=== PATIENT | male | born 1935 | race Caucasian/White ===

== ENCOUNTER 2017-09-18 23:00 | Observation (INO) ==
[2017-09-18 23:48] LABS: Bilirubin,Urine Negative (Negative); Blood,Urine Negative (Negative); Clarity,Urine Cloudy (Clear); Color,Urine Yellow (Yellow); Glucose,Urine (UA) Normal (Normal); Ketones,Urine Negative (Negative); Leukocyte Esterase,Urine Small (Negative); Nitrite,Urine Negative (Negative); Protein,Urine Negative (Neg-Trace); Specific Gravity,Urine 1.012 (1.010-1.025); Urobilinogen,Urine Normal (Normal)
[2017-09-18 23:51] LABS: Bacteria,Urine None Seen per hpf (None-Few); Hyaline Casts,Urine None Seen per lpf (None-Few); RBC,Urine 0-3 per hpf (0-3); Squamous Epithelial Cell,Urine Many per lpf (None-Few)
[2017-09-19 00:04] LABS: Alanine Aminotransferase 24 Units/L (7-52); Albumin 3.9 g/dL (3.5-5.7); Albumin/Globulin Ratio 1.3 (1.1-2.2); Alkaline Phosphatase 79 Units/L (34-104); Aspartate Amino Transferase 24 Units/L (13-39); BUN/Creatinine Ratio 10 (6-26); Bilirubin,Total 0.6 mg/dL (0.3-1.0); Blood Urea Nitrogen 18 mg/dL (8-23); Calcium 9.6 mg/dL (8.6-10.3); Carbon Dioxide 27 mEq/L (23-29); Chloride 105 mEq/L (98-107); Globulin 2.9 g/dL (2.4-3.5); Glucose 95 mg/dL (70-105); Osmolality,Calculated 284 (280-300); Potassium 4.3 mEq/L (3.5-5.1); Sodium 136 mEq/L (136-145); Total Protein 6.8 g/dL (6.4-8.9); Troponin I < 0.03 ng/mL (< 0.04); eGFR For African Americans 46 (> 60); eGFR For Non-African Americans 38 (> 60)
[2017-09-19 00:06] LABS: Basophils # 0.1 K/mcL (0.0-0.2); Basophils % 0.9 %; Eosinophils # 0.4 K/mcL (0.0-0.6); Eosinophils % 4.9 %; Immature Granulocytes % 0.5 % (0-4); Lymphocytes # 2.9 K/mcL (0.6-4.6); Lymphocytes % 36.9 %; Mean Corpuscular HGB Conc 34.1 g/dL (31.6-35.5); Mean Corpuscular Hemoglobin 32.3 pg (28.0-33.3); Mean Corpuscular Volume 94.8 fL (83.0-100.0); Mean Platelet Volume 10.9 fL (9.4-12.4); Monocytes # 0.7 K/mcL (0.0-1.3); Monocytes % 9.4 %; Neutrophils # 3.7 K/mcL (1.6-8.9); Platelet Count 163 K/mcL (140-400); Red Blood Count 4.64 M/mcL (4.19-5.50); Red Cell Distribution Width 13.6 % (11.5-14.5); Segmented Neutrophils % 47.4 %
--- NOTE | 2017-09-19 01:16 | Emergency Department Note ---
Disposition Clinical Impression: Dizziness Disposition: Admitted As Inpatient Condition: Good Time of Disposition: 06:05 General Adult HPI - General Chief complaint: ED Dizziness Stated complaint: states high bp,dizziness Time Seen by Provider: 09/18/17 23:10 Source: patient Mode of arrival: ambulatory Limitations: no limitations Nursing Notes Reviewed: Yes Vital Signs Reviewed: Yes - History of Present Illness HPI Narrative: Patient is an 81-year-old male with past medical history of HLD, HTN, renal disease, thyroid and CA presenting for evaluation of elevated BP and falls. Patient states that he has had 2 falls with the last fall being one week ago most recent fall being today in which she was able to stop himself from Zhu following and balance himself against the washer and dryer. He states that when these episodes are caught happening he thinks they are due to him being lightheaded. He denies any dizziness, vertiginous symptoms, near-syncopal, CP, DORY or other associated symptoms prior to falls. States he feels fine when he is sitting or laying down. Pain Scale: 0 - Related Data Home Medications Medication Instructions Recorded Confirmed Aspirin [Adult Aspirin] 81 mg PO DAILY 09/19/17 09/19/17 C,E,Zinc,Copper 11/Lwhyq7h/Lut 1 each PO DAILY 09/19/17 09/19/17 [Ocuvite Adult 50 Plus Softgel] Cholecalciferol (Vitamin D3) 5,000 unit PO DAILY 09/19/17 09/19/17 [Vitamin D3] Cyanocobalamin (B-12) [Vitamin B12] 1,000 mcg PO DAILY 09/19/17 09/19/17 Docusate [Colace] 100 mg PO DAILY 09/19/17 09/19/17 Levothyroxine [Synthroid] [place] [address]/19/17 09/19/17 Simvastatin [Zocor] 10 mg PO DAILY 09/19/17 09/19/17 Tamsulosin [Flomax] 1 tab PO BID 09/19/17 09/19/17 Allergies Allergy/AdvReac Type Severity Reaction Status Date / Time sulfamethoxazole Allergy Confusion Verified 09/18/17 23:06 [From Bactrim] trimethoprim [From Bactrim] Allergy Confusion Verified 09/18/17 23:06 All systems ED: reviewed and negative except as stated. Review of Systems: As Per HPI Constitutional: Denies: fever, chills Cardiovascular: Denies: chest pain, palpitations Respiratory: Denies: cough, dyspnea, wheezes, hemoptysis Gastrointestinal: Denies: abdominal pain, nausea, vomiting Genitourinary: Denies: urgency, dysuria Musculoskeletal: Denies: back pain, neck pain Integumentary: Denies: rash, abrasion Neurological: Denies: headache Past Medical History - Past Medical History Attestation: Yes The following information was validated with the patient. Medical history: Reports: hyperlipidemia, hypertension, myocardial infarction, renal disease, thyroid disease Psychiatric history: Reports: no psych history - Social History Smoking Status: Former smoker Smokeless Tobacco Status: No Alcohol use: Reports: rarely Drug use: Reports: none Physical Exam CONSTITUTIONAL: Alert and oriented X3, well-nourished, well appearing, in no apparent distress HEAD: Normocephalic; atraumatic. EYES: PERRL, no scleral icterus. NOSE: The nose is normal in appearance without rhinorrhea RESP: Normal chest excursion with respiration; breath sounds clear and equal bilaterally; no wheezes, rhonchi, or rales CARD: Regular rhythm, without murmurs, rub or gallop ABD: Non-distended; non-tender, soft,without rigidity, rebound or guarding SKIN: Normal for age and race; warm and dry; no apparent lesions NEUROLOGICAL: Patient is alert and oriented times three. Cranial nerves III- XII are intact. Sensory and motor functions are intact. Strength is 5/5 for flexion and extension in all 4 extremities. Patellar DTRS are equal and intact. Finger to nose testing is equal and normal bilaterally. 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 - General General appearance: alert, in no apparent distress Course Course Narrative: Patient's head CT was unremarkable, his lab work was unremarkable as well except for an elevation of creatinine however this is chronic for this patient. Discussed plan to admit him for further evaluation for posterior stroke with an MRI. Discussed that given patient has had almost 2 falls in the past week is not safe to go home at this time and would benefit from hospitalization to rule out stroke is no underlying etiology. Patient was admitted to the hospitalist. Vital Signs Temperature 97.5 F L 06/30/18 23:03 Pulse Rate 62 09/18/17 23:03 Respiratory Rate 16 09/18/17 23:03 Blood Pressure 166/87 09/18/17 23:03 O2 Sat by Pulse Oximetry 98 09/18/17 23:03 Temperature 98.1 F 09/19/17 03:18 Pulse Rate 58 09/19/17 04:03 Respiratory Rate 18 09/19/17 04:03 Blood Pressure 167/89 09/19/17 04:03 O2 Sat by Pulse Oximetry 98 09/19/17 03:18 Oxygen Delivery Oxygen Delivery Room Air Medical Decision Making - Medical Records Medical records reviewed: Yes I reviewed the patient's medical records. - Lab Data Lab results reviewed: Yes I reviewed the patient's lab results. Result diagrams: 09/18/17 23:30 09/18/17 23:30 Lab Results 09/18/17 09/18/17 09/18/17 Range/Units 23:30 23:30 23:40 WBC 7.8 (4.3-11.1) K/mcL RBC 4.64 (4.19-5.50) M/mcL Hgb 15.0 (12.9-16.9) g/dL Hct 44.0 (37.5-50.1) % MCV 94.8 (83.0-100.0) fL MCH 32.3 (28.0-33.3) pg MCHC 34.1 (31.6-35.5) g/dL RDW 13.6 (11.5-14.5) % Plt Count 163 (140-400) K/mcL MPV 10.9 (9.4-12.4) fL Immature Gran % 0.5 (0-4) % Seg Neutrophils % 47.4 % Lymphocytes % 36.9 % Monocytes % 9.4 % Eosinophils % 4.9 % Basophils % 0.9 % Neutrophils # 3.7 (1.6-8.9) K/mcL Lymphocytes # 2.9 (0.6-4.6) K/mcL Monocytes # 0.7 (0.0-1.3) K/mcL Eosinophils # 0.4 (0.0-0.6) K/mcL Basophils # 0.1 (0.0-0.2) K/mcL Sodium 136 (136-145) mEq/L Potassium 4.3 (3.5-5.1) mEq/L Chloride 105 (98-107) mEq/L Carbon Dioxide 27 (23-29) mEq/L BUN 18 (8-23) mg/dL Creatinine 1.73 H (0.70-1.30) mg/dL Est GFR ( Amer) 46 L (> 60) Est GFR (Non-Af Amer) 38 L (> 60) BUN/Creatinine Ratio 10 (6-26) Glucose 95 (70-105) mg/dL Calculated Osmolality 284 (280-300) Calcium 9.6 (8.6-10.3) mg/dL Total Bilirubin 0.6 (0.3-1.0) mg/dL AST 24 (13-39) Units/L ALT 24 (7-52) Units/L Alkaline Phosphatase 79 (34-104) Units/L Troponin I < 0.03 (< 0.04) ng/mL Serum Total Protein 6.8 (6.4-8.9) g/dL Albumin 3.9 (3.5-5.7) g/dL Globulin 2.9 (2.4-3.5) g/dL Albumin/Globulin Ratio 1.3 (1.1-2.2) Urine Color Yellow (Yellow) Urine Clarity Cloudy A (Clear) Urine pH 6.0 (5.0-8.0) pH Units Ur Specific Chappell 1.012 (1.010-1.025) Urine Protein Negative (Neg-Trace) mg/dL Urine Glucose (UA) Normal (Normal) mg/dL Urine Ketones Negative (Negative) mg/dL Urine Blood Negative (Negative) Urine Nitrite Negative (Negative) Urine Bilirubin Negative (Negative) Urine Urobilinogen Normal (Normal) mg/dL Ur Leukocyte Esterase Small H (Negative) Urine Microscopic RBC 0-3 (0-3) per hpf Urine Microscopic WBC 5-15 H (0-3) per hpf Ur Squamous Epith Cells Many H (None-Few) per lpf Urine Bacteria None Seen (None-Few) per hpf Hyaline Casts None Seen (None-Few) per lpf Ur Culture Indicated? NO. A (NO) - Radiology Data Radiology results reviewed: Yes I reviewed the patient's radiology results. Head CT 09/18/17 23:20 IMPRESSION: No acute intracranial abnormality. D/ / Francis Rios / Francis Rios Interpreting Provider: Francis Rios Chest X-Ray 09/19/17 00:23 IMPRESSION: 1. Cardiomegaly. 2. Calcific atherosclerosis aorta. 3. Probable acute on chronic interstitial disease and bibasilar pneumonia. I cannot exclude congestive heart failure. D/ / Mainor Solo / Mainor Solo Interpreting Provider: Mainor Solo - EKG Data EKG #1 EKG attestation: Yes I reviewed and interpreted this EKG. EKG results narrative: EKG done at 23:27 shows sinus rhythm at a rate of 62 bpm. Normal axis. No ischemic changes. Attestation Statement - Attestation Attestation: I examined this patient and my medical decision-making was reviewed with the Resident Physician. I agree with the documented findings, disposition and treatment plan as described except to the extent set forth below. I spoke with neurology, no rec at this time. They will see the patient in the morning. Spoke with Dr. Unger. Patient is stable with NIH 0 at time of admission.
--- NOTE | 2017-09-19 02:40 | Internal Med History&Physical ---
Date of Encounter: 09/19/17 Time of Encounter: 02:40 Internal Medicine - H&P: HPI Chief complaint: Falls Admitted From: Home History of present illness: Mr. Winslow is an 81 year-old male with PMH of [place], HTN, HLD, renal disease, and hypothyroidism who presented to the ED to be evaluated for falls. When he woke up yesterday morning he reports feeling nauseous and "not right." He then went to let his dog outside and reports almost falling, but was able catch himself on the washer and dryer nearby. He says that when he's falling, he knows he's falling, but "can't do anything about it." Last fell 1 week ago. Denies dizziness, pre-syncopal symptoms, headache, chest pain or pressure, heart palpitations, dyspnea, wheezing, coughing, abdominal pain, vomiting. Additionally, he reports vision changes in his left eye x 1 year--he is aware he has a left eye cataract. 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 Describes vision changes in that when he looks at a white wall in his home, it sometimes appears green, purple, or gold and faces on TV look like somebody's painted them or appear smeared--these episodes occur intermittently, sometimes several weeks apart. He denies past history of TIA or stroke. In the ED he was afebrile and his vital signs were stable. He was, however, hypertensive with SBP 160's to 170's and DBP 90's. CXR shows cardiomegaly and acute on chronic interstitial lung disease with bibasilar haziness. Head CT showed no acute intracranial abnormalities. Lab work shows elevated creatinine of 1.73, which doesn't appear too far from his baseline. Pt admitted for further evaluation of possible posterior stroke. 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 carpal tunnel left wrist - Social History Smoking Status: Former smoker Smokeless Tobacco Status: No Alcohol use: rarely Drug use: none - Family History Mother Cause of : ND Hx Family Cardiac Disorders: Yes (ND) Internal Medicine - H&P: Meds Aspirin [Adult Aspirin] 81 mg PO DAILY 09/19/17 [History] C,E,Zinc,Copper 11/Cprad9v/Lut [Ocuvite Adult 50 Plus Softgel] 1 each PO DAILY 09/19/17 [History] Cholecalciferol (Vitamin D3) [Vitamin D3] 5,000 unit PO DAILY 09/19/17 [History] Cyanocobalamin (B-12) [Vitamin B12] 1,000 mcg PO DAILY 09/19/17 [History] Docusate [Colace] 100 mg PO DAILY 09/19/17 [History] Levothyroxine [Synthroid] [place] [address]/19/17 [History] Simvastatin [Zocor] 10 mg PO DAILY 09/19/17 [History] Tamsulosin [Flomax] 1 tab PO BID 09/19/17 [History] 3 Allergy/AdvReac Type Severity Reaction Status Date / Time sulfamethoxazole Allergy Confusion Verified 09/18/17 23:06 [From Bactrim] trimethoprim [From Bactrim] Allergy Confusion Verified 09/18/17 23:06 All Systems PM: A 10-system review of systems was performed and is negative for pertinent findings except as documented above in the HPI. - Constitutional Constitutional: as per HPI - EENT Eyes: as per HPI - Cardiovascular Cardiovascular ROS IM: as per HPI - Respiratory Respiratory: as per HPI - Gastrointestinal Gastrointestinal: as per HPI, constipation, nausea, no diarrhea, no vomiting - Genitourinary Genitourinary ROS male: no difficulty urinating, no dysuria - Neurological Neurological ROS: no dizziness, no weakness - Constitutional Vitals: Temp Pulse Resp BP Pulse Ox 97.5 F L 53 12 179/90 99 09/18/17 23:03 09/19/17 01:26 09/19/17 02:13 09/19/17 02:13 09/19/17 01:26 General appearance: Present: A&O X 3, pleasant, no acute distress - Head Head exam: Present: atraumatic, normal inspection, normocephalic - Eye Eye exam: Present: normal appearance, PERRL Pupils: Present: PERRL - ENT ENT exam: Present: mucous membranes moist - Neck Neck exam general surgery: Present: supple, trachea midline - Respiratory Respiratory exam: Present: CTAB. Absent: rales, rhonchi, wheezes - Cardiovascular Cardiovascular exam: Present: RRR, +S1, +S2 - GI/Abdominal GI/Abdominal exam: Present: normal bowel sounds, soft. Absent: distended, rigid , tenderness - Extremities Exam Extremities exam: Present: warm. Absent: calf tenderness, cyanotic, pedal edema , tenderness - Back Exam Back exam: Present: normal inspection - Neurological Exam Neurological exam: Present: alert, CN II-XII intact, oriented X3, no focal deficits, strengths equal and symetr throughout. Absent: motor sensory deficit , facial droop, speech deficit - Psychiatric Psychiatric exam: Present: normal affect, normal mood - Skin Skin exam: Present: dry, intact, warm Internal Med - H&P Results - Labs CBC & Chem 7: 09/18/17 23:30 09/18/17 23:30 - Assessment and plan (1) Multiple falls Current Visit: Yes Status: Acute Assessment and plan: Concern for possibility of posterior stroke CT head was negative for acute intracranial abnormalities Plan Neurology consulted Brain MRI ordered Consult to PT/OT placed (2) Vision abnormalities Current Visit: Yes Status: Acute Assessment and plan: History of blindness in right eye and cataract of left eye Pt's reported vision changes (as described in HPI) occurring intermittently x 1 year No focal neurological deficits on exam CT head negative for acute intracranial abnormalities Plan Neurology consulted Brain MRI ordered (3) Hypertension Current Visit: No Status: Chronic Assessment and plan: Uncontrolled SBP 160-170's / DBP 90's Doesn't appear to be on anti-hypertensives at home Plan Advise dietary salt restriction Continue to monitor Qualifiers: Hypertension type: essential hypertension Qualified Code(s): I10 - Essential (primary) hypertension (4) CKD (chronic kidney disease) stage 3, GFR 30-59 ml/min Current Visit: Yes Status: Chronic Assessment and plan: Cr 1.73 with eGFR 38 on admission and appears to be near baseline (3 months ago Cr 1.62 with eGFR 41) Plan Monitor renal function Use renal dosing and avoid nephrotoxins when available (5) DVT prophylaxis Current Visit: Yes Status: Acute Assessment and plan: Heparin 5,000 units subcutaneous Q12H - Time Spent With Patient Total time spent is greater than 50% in coordination of care (as documented) at patient's floor/unit and/or counseling patient:
[2017-09-19] MEDS: *HR* Heparin 5,000 UNIT/ML VIAL SQ SCH ×2 (05:56→17:03)
[2017-09-19] MEDS: Aspirin Enteric Coated 81 MG Tablet PO SCH (08:47)
[2017-09-19 09:30] LABS: Calcium 9.4 mg/dL (8.6-10.3); Potassium 4.3 mEq/L (3.5-5.1)
--- NOTE | 2017-09-19 15:03 | Neurology - Consult Note ---
Date of Encounter: 09/19/17 Time of Encounter: 14:57 Assessment and Plan (1) Multiple falls Current Visit: Yes Status: Acute Patient is clearly myelopathic, with lower extremity weakness, right more than left. He is spastic in his legs but hand project consultant are strong. 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 He is s/p cervical spine fusion during 2008. He has been having falling 4-5 times since the surgery and has residual myelopatic symptoms which appear chronic in nature. Due to his age and co-morbidities, do not believe that is a suitable candidate for surgical intervention. Do not believe that he has a stroke. MRI of brain already ordered so if MRI of brain returns negative for CVA then i would recommend PT for gait training and may benefit from assistance device evaluation such as a different type of walker. History of Present Illness Chief complaint: Falling and not feeling well HPI: Mr. Winslow is a 81 year old male with PMH significant for cervical disease, s/ p cervical spine fusion surgery, HTN, CAD, hyperlipidemia, BPH, hypothyroidism, who presented with frequent falls. Patient has history of balance difficulty and falling. 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 He states that the falling started at that time. He saw Dr. Chevy Chapman the orthopedic surgeon who did cervical spine fusion 2008. Was told that the surgery may not help him feeling better but could prevent his walking from getting worse. He has fallen 4-5 times since 2008. One week while in [place] he had a fall. Then he fell again resulting in this admission. He feels better now and says in terms of his walking and falling there is not much changes since the surgery. He was admitted to the hospital to make sure he does not have a stroke. 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 carpal tunnel left wrist - Social History Smoking Status: Former smoker Packs per day: 2 Smokeless Tobacco Status: No Alcohol use: rarely Drug use: none - Family History Mother Cause of : [place] Hx Family Cardiac Disorders: Yes ([place]) Medications and Allergies Aspirin [Adult Aspirin] 81 mg PO DAILY 09/19/17 [History] C,E,Zinc,Copper 11/Bmtbu5q/Lut [Ocuvite Adult 50 Plus Softgel] 1 each PO DAILY 09/19/17 [History] Captopril [Capoten] 25 mg PO BID 09/19/17 [History] Cholecalciferol (Vitamin D3) [Vitamin D3] 5,000 unit PO DAILY 09/19/17 [History] Cyanocobalamin (B-12) [Vitamin B12] 1,000 mcg PO DAILY 09/19/17 [History] Docusate [Colace] 100 mg PO DAILY 09/19/17 [History] Levothyroxine [Synthroid] [place] [address]/19/17 [History] Nitroglycerin [Nitrostat] 0.4 mg SL Q5M PRN 09/19/17 [History] Simvastatin [Zocor] 10 mg PO DAILY 09/19/17 [History] 3 Allergy/AdvReac Type Severity Reaction Status Date / Time sulfamethoxazole Allergy Confusion Verified 09/18/17 23:06 [From Bactrim] trimethoprim [From Bactrim] Allergy Confusion Verified 09/18/17 23:06 All Systems: The remainder of the systems were reviewed and are negative Physical Examination - Vital Signs Vital Signs: Initial Vital Signs Temp Pulse Resp BP Pulse Ox 97.5 F L 62 16 166/87 98 09/18/17 23:03 09/18/17 23:03 09/18/17 23:03 09/18/17 23:03 09/18/17 23:03 - Constitutional General appearance: comfortable - Neurologic Sensorimotor examination: intact (grossly intract) Detailed motor examination: grossly full strength in all extremities Motor examination - right side: 4/5: hip flexors, tibialis Anterior, quadriceps , toe extension (EHL), plantarflexion, 5/5: deltoids, biceps, triceps, wrist flexion, wrist extension, flavor tank tender Motor examination - left side: 4/5: quadriceps, tibialis Anterior, toe extension (EHL), plantarflexion, 5/5: deltoids, biceps, triceps, wrist flexion, wrist extension, hip flexors, flavor tank tender Detailed sensory examination: intact (Grossly intact) Posture: other (None) Reflex and gait examination: other (Patient has difficulty standing up from sitting position. Is able to walk with using a walker and there appears to be right foot drop) Reflexes: Biceps: 3+, Triceps: 3+, Brachioradialis: 3+, Patella: 3+, Achilles: 3 + Mental Status Examination: awake, alert, oriented to person, oriented to place, oriented to time, follows commands appropriately, answers questions appropriately, no agnosia, no aphasia, no aproxia Cranial nerve examination: PERRL, EOMI, visual ayala intact, corneal reflexes brisk symmetrically, sensory to face intact, mastication intact, no facial asymmetry is present, no dysarthria, hearing is intact symmetrically, soft palate elevates bilaterally upon phonation, gag reflex intact, flexes SCM and trapezius muscles symmetrically with full power, tongue protrudes midline, no atrophy or facial fasiculations present Results - Laboratory Findings CBC and BMP: 09/18/17 23:30 09/19/17 08:49 Abnormal lab findings: Abnormal lab results Chloride 108 mEq/L (98-107) H 09/19/17 08:49 Creatinine 1.57 mg/dL (0.70-1.30) H 09/19/17 08:49 Est GFR ( Amer) 52 (> 60) L 09/19/17 08:49 Est GFR (Non-Af Amer) 43 (> 60) L 09/19/17 08:49 Glucose 119 mg/dL (70-105) H 09/19/17 08:49 Urine Clarity Cloudy (Clear) A 09/18/17 23:40 Ur Leukocyte Esterase Small (Negative) H 09/18/17 23:40 Urine Microscopic WBC 5-15 per hpf (0-3) H 09/18/17 23:40 Ur Squamous Epith Cells Many per lpf (None-Few) H 09/18/17 23:40 Ur Culture Indicated? NO. (NO) A 09/18/17 23:40 - Diagnostic Findings Additional findings: CT OF THE HEAD WITHOUT CONTRAST 09/19/2017 12:11 am TECHNIQUE: CT of the head was performed without the administration of intravenous contrast. Dose modulation, iterative reconstruction, and/or weight based adjustment of the mA/kV was utilized to reduce the radiation dose to as low as reasonably achievable. COMPARISON: CT head 07/28/2014, 10/24/2013 HISTORY: ORDERING SYSTEM PROVIDED HISTORY: Dizziness Additional tech notes: 3... RN W PT [id number] FINDINGS: BRAIN/VENTRICLES: There is no acute intracranial hemorrhage, mass effect or midline shift. No abnormal extra-axial fluid collection. The hoffman-white differentiation is maintained without evidence of an acute infarct. There is no evidence of hydrocephalus. ORBITS: The visualized portion of the orbits demonstrate no acute abnormality. SINUSES: The visualized paranasal sinuses and mastoid air cells demonstrate no acute abnormality. SOFT TISSUES/SKULL: No acute abnormality of the visualized skull or soft tissues. CT/CT head/brain wo con IMPRESSION: No acute intracranial abnormality. D/ / Francis Rios / Francis Rios Interpreting Provider: Francis Rios Consult Discharge Plan - Plan Referrals: Yan Angel MD [Primary Care Provider] -
--- NOTE | 2017-09-19 16:39 | Internal Med Progress Note ---
Date of Encounter: 09/19/17 Time of Encounter: 16:37 - Assessment and plan (1) Multiple falls Current Visit: Yes Status: Acute Assessment and plan: Concern for possibility of posterior stroke therefore cva r/o work up in progress. echo, carotid and MRI ordered. on board Neurologist. 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 no new vision change. cva w/u is in the progress. (3) CKD (chronic kidney disease) stage 3, GFR 30-59 ml/min Current Visit: Yes Status: Chronic Assessment and plan: stable. avoid nephrotoxic drugs. close monitoring (4) Hypertension Current Visit: No Status: Chronic Assessment and plan: will start Home BP meds once rule out CVA. Hydralazine pr inf SBP>210 DBP >110 Qualifiers: Hypertension type: essential hypertension Qualified Code(s): I10 - Essential (primary) hypertension (5) DVT prophylaxis Current Visit: Yes Status: Acute Assessment and plan: HEPARIN, SCD - Time Spent With Patient Total time spent is greater than 50% in coordination of care (as documented) at patient's floor/unit and/or counseling patient: - Subjective Interval history: no new complain. denies f/c/n/v/d/cp/sob/urine complain. reviewed the lab. - Constitutional Vitals: Temp Pulse Resp BP Pulse Ox 97.6 F 56 20 183/94 95 09/19/17 15:27 09/19/17 15:27 09/19/17 15:27 09/19/17 15:27 09/19/17 15:27 General appearance: Present: A&O X 3, pleasant, no acute distress - Head Head exam: Present: atraumatic - Eye Eye exam: Present: EOMI, PERRL, conjuntiva pink, sclera anicteric Pupils: Present: PERRL - ENT ENT exam: Present: mucous membranes moist - Neck Additional comments: limited ROM - chronic - Respiratory Respiratory exam: Present: CTAB. Absent: accessory muscle use, rales, rhonchi, wheezes - Cardiovascular Cardiovascular exam: Present: RRR, +S1, +S2. Absent: diastolic murmur, gallop, rubs, systolic murmur - GI/Abdominal GI/Abdominal exam: Present: normal bowel sounds, soft, no peritoneal signs. Absent: distended, tenderness - Extremities Exam Extremities exam: Present: warm, radial pulses palpable and symmetrical. Absent : calf tenderness, cyanotic, pedal edema - Neurological Exam Neurological exam: Present: abnormal gait, CN II-XII intact, oriented X3. Absent: strengths equal and symetr throughout, facial droop, speech deficit Additional comments: BLE 06/24- right weaker BUE-07/24 Internal Medicine: Result - Labs CBC & Chem 7: 09/18/17 23:30 09/19/17 08:49 Labs: BMP 09/19/17 08:49 Sodium 138 Potassium 4.3 Chloride 108 H Carbon Dioxide 26 BUN 17 Creatinine 1.57 H Glucose 119 H Calcium 9.4 Consult Discharge Plan - Plan Referrals: Yan Angel MD [Primary Care Provider] -
[2017-09-19] MEDS ORDERED: Nitroglycerin 0.4 MG TAB.SUBL SL PRN (16:51)
[2017-09-20] MEDS ORDERED: MOM Conc 10 ML UD.LIQ PO PRN ×2 (03:32→16:35)
[2017-09-20] MEDS: *HR* Heparin 5,000 UNIT/ML VIAL SQ SCH ×2 (05:58→17:18)
[2017-09-20 06:41] LABS: Calcium 9.4 mg/dL (8.6-10.3); Potassium 4.5 mEq/L (3.5-5.1)
[2017-09-20] MEDS: Aspirin Enteric Coated 81 MG Tablet PO SCH (08:17)
[2017-09-20] MEDS ORDERED: NON-FORMULARY MEDICATION 1 EACH EACH (Simvastatin [Zocor] 10 MG) PO SCH (09:00)
[2017-09-20] MEDS ORDERED: Multivit/Ca/Min/Fe/FA 1 TAB TABLET PO SCH (15:45)
[2017-09-20] MEDS ORDERED: Cholecalciferol (D-3) 1,000 UNIT TABLET PO SCH (15:45)
[2017-09-20] MEDS ORDERED: Cyanocobalamin (B-12) 1,000 MCG TABLET PO SCH (15:45)
--- NOTE | 2017-09-20 16:07 | Internal Med Progress Note ---
Date of Encounter: 09/20/17 Time of Encounter: 16:05 - Assessment and plan (1) Multiple falls Current Visit: Yes Status: Acute Assessment and plan: CVA workup pending. MRI brain with no acute abnormality. Carotid U/S with non- stenotic plaque bilaterally. ECHO pending. Neurolog consulted; appreciate input. 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 He is not a good candidate for another spinal surgery. PT/OT consulted. Will set up outpatient PT/OT at discharge. (2) Hypertension Current Visit: No Status: Chronic Assessment and plan: CVA ruled out. Start home anti-hypertensives. Qualifiers: Hypertension type: essential hypertension Qualified Code(s): I10 - Essential (primary) hypertension (3) CKD (chronic kidney disease) stage 3, GFR 30-59 ml/min Current Visit: Yes Status: Chronic Assessment and plan: At baseline. Avoid nephrotoxic drugs. Recheck BMP in AM. 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 No new vision changes. (5) DVT prophylaxis Current Visit: Yes Status: Acute Assessment and plan: Continue SQ heparin and SCDs. - Time Spent With Patient Total time spent is greater than 50% in coordination of care (as documented) at patient's floor/unit and/or counseling patient: less than 15 minutes - Subjective Interval history: Patient had no acute events overnight. He states that he feels "good" and wants to go home. ECHO is pending. MRI brain showed no acute abnormality. He ambulated with assistance from PT/OT today. He does not want to go to acute rehab, but will do outpatient rehab. He denies fever, chills, chest pain, SOB, nausea, vomiting, or abdominal pain. He has not had a bowel movement since , and he thinks this may be contributing to his falls. He has no other complaints at this time. - Constitutional Vitals: Temp Pulse Resp BP Pulse Ox 97.9 F 58 18 164/81 96 09/20/17 15:51 09/20/17 15:51 09/20/17 15:51 09/20/17 15:51 09/20/17 15:51 General appearance: Present: cooperative, A&O X 3, pleasant, no acute distress, answers questions appropriately - Respiratory Respiratory exam: Present: CTAB. Absent: accessory muscle use, rales, rhonchi, wheezes Additional comments: Normal WOB - Cardiovascular Cardiovascular exam: Present: RRR, +S1, +S2. Absent: diastolic murmur, gallop, rubs, systolic murmur Additional comments: No BLE edema - GI/Abdominal GI/Abdominal exam: Present: normal bowel sounds, soft. Absent: distended, hepatomegaly, mass, splenomegaly, tenderness - Psychiatric Psychiatric exam: Present: normal affect, normal mood. Absent: agitated, anxious, depressed - Skin Skin exam: Present: dry, intact, warm. Absent: cyanosis, rash Internal Medicine: Result - Labs CBC & Chem 7: 09/18/17 23:30 09/20/17 05:58 Labs: BMP 09/20/17 05:58 Sodium 139 Potassium 4.5 Chloride 108 H Carbon Dioxide 25 BUN 23 Creatinine 1.75 H Glucose 102 Calcium 9.4 - Impressions Impressions Brain MRI 09/20/17 04:09 IMPRESSION: No acute intracranial abnormality. Minimal chronic microvascular ischemic disease has progressed since the prior examination. D/ / 09/20/2017 15:25:16 Irma Anderson MD / [facility] Interpreting Provider: Irma Anderson MD Consult Discharge Plan - Plan Referrals: Yan Angel MD [Primary Care Provider] - 09/27/17 1:00 pm
[2017-09-20] MEDS ORDERED: Nitroglycerin 0.4 MG TAB.SUBL SL PRN (16:35)
--- NOTE | 2017-09-20 18:16 | Electrocardiograph Report ---
[address] [place] [address] Test Date: 2017-09-18 Pat Name: Raphael Winslow Department: 103 Room: 2N08 Gender: M [employer] Buffer: : [id number] Requested By: Steve Greenberg Order Number: [id number] Reading MD: Jamar Mosquera Measurements Intervals [place] Rate: 62 P: 5 MS: 136 QRS: 34 QRSD: 93 T: 221 QT: 406 QTc: 411 Interpretive Statements SINUS RHYTHM INFERIOR MYOCARDIAL INFARCTION, OF INDETERMINATE AGE Electronically Signed On 09-20-2017 18:15:04 EDT by Jamar Mosquera
[2017-09-21 04:21] LABS: Basophils # 0.1 K/mcL (0.0-0.2); Eosinophils # 0.3 K/mcL (0.0-0.6); Eosinophils % 4.7 %; Hematocrit 41.8 % (37.5-50.1); Hemoglobin 13.9 g/dL (12.9-16.9); Immature Granulocytes % 0.3 % (0-4); Lymphocytes # 2.3 K/mcL (0.6-4.6); Lymphocytes % 33.5 %; Mean Corpuscular HGB Conc 33.3 g/dL (31.6-35.5); Mean Corpuscular Hemoglobin 30.8 pg (28.0-33.3); Mean Corpuscular Volume 92.5 fL (83.0-100.0); Mean Platelet Volume 10.9 fL (9.4-12.4); Monocytes # 0.7 K/mcL (0.0-1.3); Monocytes % 9.9 %; Neutrophils # 3.4 K/mcL (1.6-8.9); Platelet Count 146 K/mcL (140-400); Red Blood Count 4.52 M/mcL (4.19-5.50); Red Cell Distribution Width 13.7 % (11.5-14.5); Segmented Neutrophils % 50.6 %
[2017-09-21 04:38] LABS: Calcium 9.3 mg/dL (8.6-10.3); Potassium 4.6 mEq/L (3.5-5.1)
[2017-09-21] MEDS: *HR* Heparin 5,000 UNIT/ML VIAL SQ SCH ×2 (06:17→17:51)
[2017-09-21] MEDS: Aspirin Enteric Coated 81 MG Tablet PO SCH (08:09)
[2017-09-21] MEDS: Cyanocobalamin (B-12) 1,000 MCG TABLET PO SCH (08:09)
[2017-09-21] MEDS: Multivit/Ca/Min/Fe/FA 1 TAB TABLET PO SCH (08:09)
[2017-09-21] MEDS: Cholecalciferol (D-3) 1,000 UNIT TABLET PO SCH (08:09)
--- NOTE | 2017-09-21 09:54 | Internal Med Progress Note ---
Date of Encounter: 09/21/17 Time of Encounter: 11:00 - Assessment and plan (1) Acute systolic heart failure Current Visit: Yes Status: Acute Assessment and plan: Echocardiogram done on 09/20/17 for workup of patient's frequent falls and was found to have a LVEF of 35% with regional wall motion abnormalities. Patient denies history of congestive heart failure but does report of having coronary arterial disease. Cardiology consulted and appreciate recommendations (2) Multiple falls Current Visit: Yes Status: Acute Assessment and plan: MRI brain with no acute abnormality. Carotid U/S with non-stenotic plaque bilaterally. Suspect residual myelopathic symptoms from cervical cord compression but he is not a good candidate for another spinal surgery. PT/OT consulted with recommendations for [facility] facility placement but patient declines. (3) Hypertension Current Visit: No Status: Chronic Assessment and plan: Controlled; continue DELPHINE inhibitor Qualifiers: Hypertension type: essential hypertension Qualified Code(s): I10 - Essential (primary) hypertension (4) CKD (chronic kidney disease) stage 3, GFR 30-59 ml/min Current Visit: Yes Status: Chronic Assessment and plan: At baseline. Avoid nephrotoxic drugs. 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 No new vision changes. (6) DVT prophylaxis Current Visit: Yes Status: Acute Assessment and plan: Continue SQ heparin - Time Spent With Patient Total time spent is greater than 50% in coordination of care (as documented) at patient's floor/unit and/or counseling patient: - Subjective Interval history: Patient recently with multiple falls found to have episodes of bradycardia overnight in addition to new onset of systolic heart failure on echocardiogram - Constitutional Vitals: Temp Pulse Resp BP Pulse Ox 97.8 F 42 16 126/64 98 09/21/17 06:51 09/21/17 08:33 09/21/17 06:51 09/21/17 06:51 09/21/17 07:00 General appearance: Present: cooperative, A&O X 3, pleasant, no acute distress, answers questions appropriately - Respiratory Respiratory exam: Present: CTAB. Absent: accessory muscle use, rales, rhonchi, wheezes - Cardiovascular Cardiovascular exam: Present: RRR, +S1, +S2. Absent: diastolic murmur, gallop, rubs, systolic murmur Internal Medicine: Result - Labs CBC & Chem 7: 09/21/17 03:54 09/21/17 03:54 Labs: Short CBC 09/21/17 Range/Units 03:54 WBC 6.8 (4.3-11.1) K/mcL Hgb 13.9 (12.9-16.9) g/dL Hct 41.8 (37.5-50.1) % Plt Count 146 (140-400) K/mcL Neutrophils # 3.4 (1.6-8.9) K/mcL BMP 09/21/17 03:54 Sodium 138 Potassium 4.6 Chloride 109 H Carbon Dioxide 22 L BUN 25 H Creatinine 1.56 H Glucose 95 Calcium 9.3 - Impressions Impressions Brain MRI 09/20/17 04:09 IMPRESSION: No acute intracranial abnormality. Minimal chronic microvascular ischemic disease has progressed since the prior examination. D/ / 09/20/2017 15:25:16 Irma Anderson MD / [place] Interpreting Provider: Irma Anderson MD Echocardiogram 09/20/17 15:36 Impressions: LVEF 35%. Regional wall motion abnormalities. Mildly dilated left ventricle. Mild left ventricular diastolic dysfunction. RV is mildly dilated with mild reduction in function. Mild mitral regurgitation. Mildly sclerotic aortic valve leaflets. No pulmonary hypertension. Ascending aorta not well visualized. Left Ventricular Wall Motion: Rest Echo Findings The apex, apical inferior, mid inferior, basal inferior, apical anterior, apical septal, mid inferior septal, basal inferior septal, mid inferior lateral and basal inferior lateral culver were hypokinetic. The mid anterior, basal anterior, apical lateral, mid anterior lateral and basal anterior lateral culver were not visualized. Findings: Study Quality * Technically adequate exam. ECG Findings * Sinus bradycardia. Left Ventricle * LVEF 35%. * Mildly dilated left ventricle. * Mild left ventricular diastolic dysfunction. Right Ventricle * RV is mildly dilated with mild reduction in function. Left Atrium * Moderately dilated left atrium. Right Atrium * Mildly dilated right atrium. Mitral Valve * Normal mitral valve structure. * No mitral stenosis. * Mild mitral regurgitation. Aortic Valve * No aortic regurgitation. * Trileaflet aortic valve. * Mildly sclerotic aortic valve leaflets. * No aortic stenosis. Tricuspid Valve * Tricuspid valve not well visualized. * Trace tricuspid regurgitation. * Estimated RA pressure is 3 mmHg. * Estimated RVSP is 20 mmHg. * No pulmonary hypertension. Pulmonic Valve * Pulmonic valve is not well visualized. * No pulmonic stenosis. * No pulmonic regurgitation. Pulmonary Artery * Pulmonary artery not well visualized. Aorta * Normally sized aortic root. * Ascending aorta not well visualized. Pericardium * There is no pericardial effusion present. Interatrial Septum * No evidence of PFO by color Doppler. IVC * Normal IVC dimensions and inspiratory collapse. Consult Discharge Plan - Plan Referrals: Yan Angel MD [Primary Care Provider] - 09/27/17 1:00 pm
[2017-09-22] MEDS: *HR* Heparin 5,000 UNIT/ML VIAL SQ SCH (06:05)
[2017-09-22] MEDS: Multivit/Ca/Min/Fe/FA 1 TAB TABLET PO SCH (08:12)
[2017-09-22] MEDS: Aspirin Enteric Coated 81 MG Tablet PO SCH (08:12)
[2017-09-22] MEDS: Cyanocobalamin (B-12) 1,000 MCG TABLET PO SCH (08:13)
[2017-09-22] MEDS: Cholecalciferol (D-3) 1,000 UNIT TABLET PO SCH (08:13)
[2017-09-22 12:03] VITALS: BP 153/83
--- NOTE | 2017-09-22 12:06 | Discharge Summary ---
- NOTES TO OUTPATIENT PROVIDER Notes to Outpatient Provider: Patient will follow up with primary care Date of Encounter: 09/22/17 Time of Encounter: 11:00 - Discharge Diagnosis (1) Acute systolic heart failure Priority: Secondary Status: Acute (2) Multiple falls Priority: Primary Status: Acute (3) Hypertension Priority: Secondary Status: Chronic Qualifiers: Hypertension type: essential hypertension Qualified Code(s): I10 - Essential (primary) hypertension (4) CKD (chronic kidney disease) stage 3, GFR 30-59 ml/min Priority: Secondary Status: Chronic (5) Vision abnormalities Priority: Secondary Status: Chronic Hospital course: Patient is an 81-year-old female with past medical history significant for cervical disease, s/p cervical spine fusion surgery, HTN, CAD, hyperlipidemia, BPH, hypothyroidism, who presented to the ER on 09/19/17 due to frequent falls. Patient has history of balance difficulty and falling. 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 He states that the falling started at that time. He saw Dr. Chevy Chapman the orthopedic surgeon who did cervical spine fusion 2008. Was told that the surgery may not help him feeling better but could prevent his walking from getting worse. He has fallen 4-5 times since 2008. He was admitted to the hospital for CVA rule out. During patients hospital stay, CT of head showed no intracranial abnormality. MRI was done which did not show any acute abnormalities. Neurology was consulted with recommendations for physical therapy who recommended that patient be placed at [facility] facility which patient refused. Patient will be discharged to follow-up with primary care provider. - Time Spent with Patient Total time spent providing and/or coordinating discharge services: Less than 30 minutes - Discharge Medications Home Medications: Aspirin [Adult Aspirin] 81 mg PO DAILY 09/19/17 [History] C,E,Zinc,Copper 11/Bfszx2x/Lut [Ocuvite Adult 50 Plus Softgel] 1 each PO DAILY 09/19/17 [History] Captopril [Capoten] 25 mg PO BID 09/19/17 [History] Cholecalciferol (Vitamin D3) [Vitamin D3] 5,000 unit PO DAILY 09/19/17 [History] Cyanocobalamin (B-12) [Vitamin B12] 1,000 mcg PO DAILY 09/19/17 [History] Docusate [Colace] 100 mg PO DAILY 09/19/17 [History] Levothyroxine [Synthroid] 75 mcg PO 0630 09/19/17 [History] Nitroglycerin [Nitrostat] 0.4 mg SL Q5M PRN 09/19/17 [History] Simvastatin [Zocor] 10 mg PO DAILY 09/19/17 [History] Allergies/Adverse Reactions: 3 Allergy/AdvReac Type Severity Reaction Status Date / Time sulfamethoxazole Allergy Confusion Verified 09/18/17 23:06 [From Bactrim] trimethoprim [From Bactrim] Allergy Confusion Verified 09/18/17 23:06 Date of admission: 09/19/17 01:44 Primary care physician: Yan Angel MD Consults: 09/19/17 01:51 Consult to Neurology [CONS] Routine Consulting Provider: Neurology [facility] Reason for Consult: vertigo, ro stroke Call Completed: Yes 09/19/17 07:22 Consult to Occupational Therapy [CONS] Routine Comment: Evaluate, develop and implement POC Reason for Consult: recent falls at home Does patient have active BEDREST order?: No Is patient medically & hemodynamically stable?: Yes Consult to Physical Therapy [CONS] Routine Comment: Evaluate, develop and implement POC Reason for Consult: recent falls in home Does patient have active BEDREST order?: No Is patient medically & hemodynamically stable?: Yes - Constitutional Vitals: Temp Pulse Resp BP Pulse Ox 98.1 F 51 18 153/83 96 09/22/17 12:01 09/22/17 12:01 09/22/17 12:01 09/22/17 12:01 09/22/17 12:01 General appearance: Present: cooperative, A&O X 3, pleasant, no acute distress, answers questions appropriately - Cardiovascular Cardiovascular exam: Present: RRR, +S1, +S2. Absent: diastolic murmur, gallop, rubs, systolic murmur - Patient Status Disposition: Home, Self-Care Condition: Good - Discharge Instructions Instructions: Heart Failure (DC) Follow Up With: Yan Angel MD [Primary Care Provider] - 09/27/17 1:00 pm
== END 2017-09-22 17:18 | disposition home or self-care (01) ==
LOC: 3BNU 23:00 → EMEROO 23:00 → SUATTDRO 09-19 01:44 → 3BNU 09-19 02:40 → 2NNU 09-19 03:11
PROVIDERS: ADMIT Family Medicine; ATTEND Hospitalist